=== PATIENT | female | born 1975 | race Caucasian/White ===

== ENCOUNTER 2017-05-09 10:42 | Outpatient (CLI) ==
--- NOTE | 2017-05-09 12:12 | DI ---
EXAM: Radiographs, cervical spine HISTORY: Neck pain. COMPARISON: None available. TECHNIQUE: Six views. FINDINGS: Curvature and alignment are normal. The vertebral body heights are maintained. There is mild loss of disc height at C5-6 with moderate endplate osteophyte formation. Mild uncovertebral hy pertrophy seen at C5-6 which may cause neural foraminal narrowing. No fracture or subluxation ident ified. Prevertebral soft tissues are unremarkable. IMPRESSION: Mild to moderate degenerative changes at C5-6.
--- NOTE | 2017-05-09 12:17 | DI ---
EXAM: Thoracic spine three view HISTORY: Pain COMPARISON: None FINDINGS: The vertebral bodies are normal in height. Alignment is normal. Intervertebral disk space s are maintained. No fracture. Small multilevel marginal osteophyte formation. IMPERSSION: 1. No fracture or subluxation. 2. Very mild degenerative change.
== END 2017-05-09 10:43 | disposition home or self-care (01) ==
LOC: RAD 10:42
PROVIDERS: ATTEND Family Medicine
DX: M54.2 Cervicalgia (principal)

== ENCOUNTER 2021-05-11 12:47 | Observation (INO) ==
[2021-05-11] MEDS ORDERED: SODIUM CHLORIDE 1,000 ML IV STA ×2 (13:05→15:36)
--- NOTE | 2021-05-11 13:12 | ED.PDOC ---
General ED Provider: Dr. KATHERYN ALCOCER Chief Complaint: Syncope Stated Complaint: Recently diagnosed with COVID. Developed Pain Rt Groin thigh Was referred to Hospital by PCP for Venous Doppler US Rt Thigh to evaluate possible Blood clot. In Radiology department developed darron syncope Time Seen by Provider: 05/11/21 13:25 Mode of Arrival: Wheelchair Information Source: Patient Exam Limitations: No limitations Primary Care Provider: KATHERYN FLANAGAN Nursing and Triage Documentation Reviewed and Agree: Yes Does patient meet sepsis criteria?: No System Inflammatory Response Syndrome: Acutely Altered Mental Status Sepsis Protocol: For patient's 13 years and over: Temp is 96.8 and below OR 101 and greater Pulse >90 BPM Resp >20/minute Acutely Altered Mental Status Are patient's symptoms suggestive of a new infection, such as: -Pneumonia -Skin, Soft Tissue -Endocarditis -UTI -Bone, Joint Infection -Implantable Device -Acute Abdominal Infection -Wound Infection -Meningitis -Blood Stream Catheter Infection -Unknown Neurological Complaint Exam Syncope/Near Syncope Complaint/Exam Onset/Duration: Few minutes Symptoms Are: Resolved Episodes Lasting: Minutes Number of Episodes: 1 Frequency of Episodes: once Episodes Witnessed: Yes Loss of Consciousness: Yes Associated Head Trauma: No Activity at Onset: At rest Aggravating: Position change Alleviating: Reports Spontaneous resolution Associated Signs and Symptoms: Reports Diaphoresis, Lightheadedness, Dizziness and Weakness Cardiac Risk Factors: Reports None GI Bleed Risk Factors: Reports None Dysrhythmia Risk Factors: Reports None Related Surgical History: Reports None JVD Present: No Carotid Bruit Present: No Nystagmus Present: No Gag Reflex Present: Yes Meningeal Signs Positive: No Focal Weakness: Present None Focal Sensory Loss: Present None Gait: Unable [id number]: Normal Findings Babinski Sign: Negative Right and Negative Left Heel to Toe Normal: Yes Ana-Hallpike Test Positive: No Differential Diagnoses: Hypovolemia, Pulmonary Embolism, Seizure and Vasovagal Episode Quality Indicators for Cardiac Chest Pain: EKG in 10min. Review of Systems Review Of Systems Constitutional: Reports Malaise, Weakness, Sweats and Loss of appetite Eyes: Reports No symptoms Ears, Nose, Mouth, Throat: Reports No symptoms Respiratory: Reports Cough and Orthopnea Cardiac: Reports No symptoms GI: Reports No symptoms : Reports Burning and Dysuria Musculoskeletal: Reports No symptoms Skin: Reports No symptoms Neurological: Reports No symptoms Endocrine: Reports No symptoms Hematologic/Lymphatic: Reports No symptoms All Other Systems: Reviewed and Negative Physical Exam Physical Exam Appearance: Reports Ill-appearing Ill-appearing: Moderate Pain Distress: Mild Eyes: Reports JOAN, EOMI, Conjunctiva clear and Conjunctiva inflammed ENT: Reports Ears normal, Nose normal and Oropharynx normal Neck: Supple Respiratory: Reports Airway patent, Breath sounds clear and Breath sounds diminished Cardiovascular: Reports RRR and Pulses normal GI/: Reports Soft, Nontender, No masses, Bowel sounds normal and No Organomegaly Musculoskeletal: Reports Normal strength, ROM intact, No edema and No calf tenderness Skin: Reports Warm, Dry and Normal color Neurological: Reports Sensation intact, Motor intact, Reflexes intact, Cranial nerves intact, Alert and Oriented Psychiatric: Reports Affect appropriate and Mood appropriate Interpretation Radiology Interpretation Radiology Interpretation By: Radiologist Exam Interpreted: CT Scan (PE protocol negative; bilateral pneumonia. Dopler s can neg) EKG Interpretation Time of EKG #1: 13:06 Rate: Normal Rhythm: Sinus Ectopy: None ST Segment: Normal Interpretation: NSR Critical Care Note Critical Care Note Total Critical Care Time (mins): 60 Course Course Hematology/Chemistry: 05/11/21 12:52 05/11/21 12:52 Orders, Labs, Meds: Lab Review 05/11/21 05/11/21 05/11/21 12:52 12:52 12:52 WBC 4.41 L RBC 4.47 Hgb 13.3 Hct 39.2 MCV 87.7 MCH 29.8 MCHC 33.9 RDW Coeff of Lali 13.9 Plt Count 181 Immature Gran % (Auto) 0.2 Neut % (Auto) 73.2 Lymph % (Auto) 18.6 Stafford % (Auto) 7.5 Eos % (Auto) 0.5 Baso % (Auto) 0.0 Neut # (Auto) 3.2 Lymph # (Auto) 0.8 Stafford # (Auto) 0.3 L Eos # (Auto) 0.0 Baso # (Auto) 0.0 Immature Gran # (Auto) 0.0 ESR 14 Sodium 137.1 Potassium 3.80 Chloride 104.6 Carbon Dioxide 23.3 Anion Gap 13.00 BUN 8.9 Creatinine 0.61 Estimated GFR (MDRD) 106.00 BUN/Creatinine Ratio 14.59 Glucose 127.2 H Lactic Acid Calcium 8.53 Magnesium 1.97 Total Bilirubin 0.44 AST 34.5 ALT 23.0 Alkaline Phosphatase 86.8 Total Creatine Kinase 29.1 L Total Protein 7.47 Albumin 4.29 Globulin 3.18 Albumin/Globulin Ratio 1.34 Procalcitonin D-Dimer Influ A Molecular Assay Influ B Molecular Assay 05/11/21 05/11/21 05/11/21 12:52 12:52 13:25 WBC RBC Hgb Hct MCV MCH MCHC RDW Coeff of Lali Plt Count Immature Gran % (Auto) Neut % (Auto) Lymph % (Auto) Stafford % (Auto) Eos % (Auto) Baso % (Auto) Neut # (Auto) Lymph # (Auto) Stafford # (Auto) Eos # (Auto) Baso # (Auto) Immature Gran # (Auto) ESR Sodium Potassium Chloride Carbon Dioxide Anion Gap BUN Creatinine Estimated GFR (MDRD) BUN/Creatinine Ratio Glucose Lactic Acid 1.00 Calcium Magnesium Total Bilirubin AST ALT Alkaline Phosphatase Total Creatine Kinase Total Protein Albumin Globulin Albumin/Globulin Ratio Procalcitonin < 0.05 D-Dimer 447.06 Influ A Molecular Assay Influ B Molecular Assay 05/11/21 13:50 WBC RBC Hgb Hct MCV MCH MCHC RDW Coeff of Lali Plt Count Immature Gran % (Auto) Neut % (Auto) Lymph % (Auto) Stafford % (Auto) Eos % (Auto) Baso % (Auto) Neut # (Auto) Lymph # (Auto) Stafford # (Auto) Eos # (Auto) Baso # (Auto) Immature Gran # (Auto) ESR Sodium Potassium Chloride Carbon Dioxide Anion Gap BUN Creatinine Estimated GFR (MDRD) BUN/Creatinine Ratio Glucose Lactic Acid Calcium Magnesium Total Bilirubin AST ALT Alkaline Phosphatase Total Creatine Kinase Total Protein Albumin Globulin Albumin/Globulin Ratio Procalcitonin D-Dimer Influ A Molecular Assay Negative by naat Influ B Molecular Assay Negative by naat Orders Category Date Time Status ADMIT OBSERVATION [PLACE PATIENT OBSERVATION] .TO ADMISSION 05/11/21 18:01 Active SCU (MONITORED BED) ADMIT OBSERVATION [PLACE PATIENT OBSERVATION] 1-2XD ADMISSION 05/11/21 18:01 Active EKG-(ED ONLY) Stat CARDIO 05/11/21 13:05 Completed METERED DOSE INHALATION Routine CARDIO 05/11/21 18:06 Ordered OXYGEN Routine CARDIO 05/11/21 18:11 Ordered ACTIVITY .BR with BRP CARE 05/11/21 18:12 Active INTAKE & OUTPUT Q8HR CARE 05/11/21 18:11 Active NPO REMINDER: IMAGING ONCE CARE 05/11/21 15:32 Completed TELEMETRY MONITORING TELE CARE 05/11/21 18:01 Active VITAL SIGNS Q4HR CARE 05/11/21 13:09 Completed VITAL SIGNS Q4HR CARE 05/11/21 18:12 Active REGULAR DIET DIETARY 05/11/21 Dinner Ordered IV [ED IV/MEDIPORT/POWERPORT] .ONCE EMERGENCY 05/11/21 13:06 Active BLOOD CULTURE (ED ONLY) Stat LAB 05/11/21 13:06 Ordered CBC W/ AUTO DIFF DAILY@0600 LAB 05/12/21 06:00 Ordered CBC W/ AUTO DIFF DAILY@0600 LAB 05/13/21 06:00 Ordered CBC W/ AUTO DIFF Stat LAB 05/11/21 12:52 Completed CMP [COMPREHENSIVE METABOLIC PANEL] Stat LAB 05/11/21 12:52 Completed COMPREHENSIVE METABOLIC PANEL DAILY@0600 LAB 05/12/21 06:00 Ordered COMPREHENSIVE METABOLIC PANEL DAILY@0600 LAB 05/13/21 06:00 Ordered CPK [CREATINE KINASE] Stat LAB 05/11/21 12:52 Completed CREATINE KINASE Q8H LAB 05/12/21 00:15 Ordered CREATINE KINASE Q8H LAB 05/12/21 08:15 Ordered D-DIMER Stat LAB 05/11/21 12:52 Completed ESR Stat LAB 05/11/21 12:52 Completed FLU A & B MOLECULAR [FLU A/B MOLECULAR] Stat LAB 05/11/21 13:50 Completed LACTIC ACID Stat LAB 05/11/21 13:25 Completed MAGNESIUM Stat LAB 05/11/21 12:52 Completed PROCALCITONIN Stat LAB 05/11/21 12:52 Completed TROPONIN I Q8H LAB 05/12/21 00:15 Ordered TROPONIN I Q8H LAB 05/12/21 08:15 Ordered UA [URINALYSIS C & S IF INDICATED] Stat LAB 05/11/21 13:09 Uncollected URINE DRUG SCREEN (RAPID FOR ED) [DRUG SCREEN, URINE, LAB 05/11/21 13:06 Uncollected RAPID] Stat 0.9 % Sodium Chloride [Saline Flush] MEDS 05/11/21 13:05 Active 1 syr IVF PRN PRN Albuterol Inhaler(with Spacer) [Ventolin Hfa (Per Puff- MEDS 05/11/21 21:00 Active with Spacer)] 2 puff IH QID Azithromycin [Zithromax] MEDS 05/11/21 18:05 Discontinued 500 mg PO ONCE STA Cholecalciferol (Vitamin D3) [Vitamin D] MEDS 05/11/21 18:18 Discontinued 1,000 unit PO ONCE ONE Enoxaparin Sodium [Lovenox] MEDS 05/11/21 18:30 Active 40 mg SUBCUT DAILY Ondansetron HCl/Pf [Zofran 4 mg/2 ml] MEDS 05/11/21 13:05 Active 4 mg IVP Q6H PRN Ondansetron HCl/Pf [Zofran 4 mg/2 ml] MEDS 05/11/21 18:11 Active 4 mg IVP Q6H PRN Sodium Chloride 0.9% [Sodium Chloride] 1,000 ml MEDS 05/11/21 13:05 Discontinued IV BOLUS Sodium Chloride 0.9% [Sodium Chloride] 1,000 ml MEDS 05/11/21 15:36 Discontinued IV BOLUS Zinc Sulfate [Zinc-220] MEDS 05/11/21 18:09 Discontinued 220 mg PO ONCE ONE RESUSCITATION STATUS Routine OTHERS 05/11/21 18:11 Ordered CHEST, 1V AP ONLY Stat RADS 05/11/21 13:[address] CHEST PE PROTOCOL Stat RADS 05/11/21 15:32 Completed U/S VENOUS SCAN RT LEG Stat RADS 05/11/21 15:30 Completed Medications Generic Name Dose Route Start Last Admin Trade Name Freq PRN Reason Stop Dose Admin Albuterol Sulfate 2 puff 05/11/21 21:00 Albuterol Sulfate (Ventolin Hfa) 18 Gm 1 Puff With Spacer IH QID ERI Enoxaparin Sodium 40 mg 05/11/21 18:30 Enoxaparin Sodium 40 Mg/0.4 Ml Syr SUBCUT DAILY ERI Ondansetron HCl 4 mg 05/11/21 13:05 05/11/21 16:52 Ondansetron Hcl/Pf 4 Mg/2 Ml Sdv IVP 4 mg Q6H PRN Administration nausea and vomiting Ondansetron HCl 4 mg 05/11/21 18:11 Ondansetron Hcl/Pf 4 Mg/2 Ml Sdv IVP Q6H PRN nausea and vomiting Sodium Chloride 1 syr 05/11/21 13:05 05/11/21 15:56 0.9% Sodium Chloride 10 Ml Disp.Syrin IVF 1 syr PRN PRN Administration To flush IV Discontinued Medications Generic Name Dose Route Start Last Admin Trade Name Chun PRN Reason Stop Dose Admin Azithromycin 500 mg 05/11/21 18:05 05/11/21 18:45 Azithromycin 250 Mg Tablet PO 05/11/21 18:06 500 mg ONCE STA Administration Cholecalciferol 1,000 unit 05/11/21 18:18 Cholecalciferol (Vitamin D3) 1,000 Unit (25 Mcg) Tablet PO 05/11/21 18:19 ONCE ONE Sodium Chloride 1,000 mls @ 1,000 mls/hr 05/11/21 13:05 05/11/21 14:15 Sodium Chloride IV 05/11/21 14:04 1,000 mls/hr BOLUS STA Administration Sodium Chloride 1,000 mls @ 500 mls/hr 05/11/21 15:36 05/11/21 15:56 Sodium Chloride IV 05/11/21 17:35 500 mls/hr BOLUS STA Administration Zinc Sulfate 220 mg 05/11/21 18:09 Zinc Sulfate 220 Mg Capsule PO 05/11/21 18:10 ONCE ONE Vital Signs: Temp Pulse Resp BP Pulse Ox 05/11/21 13:19 96.1 F L 74 20 89/66 L 96 Discharge Plan Discharge Patient Disposition: PLACED OBSERVATION Discharge Problem: Pneumonia due to 2019 novel coronavirus, Syncope, vasovagal ED Provider: KATHERYN ALCOCER Condition: Fair Physician Progress Note: Discussed case with Dr Flanagan-Would like to admit for observation, IV fluids, antibiotics []
[2021-05-11 13:16] LABS: EOSINOPHILS % (AUTO) 0.5 % (0.0-7.0); HEMATOCRIT 39.2 % (37.0-47.0); HEMOGLOBIN 13.3 g/dl (12.0-16.0); IMMATURE GRANULOCYTE % (AUTO) 0.2 % (0.0-5.0); LYMPHOCYTES # (AUTO) 0.8 K/uL (0.60-3.4); LYMPHOCYTES % (AUTO) 18.6 (10.0-50.0); MEAN CORPUSCULAR HEMOGLOBIN 29.8 pg (27.0-31.0); MEAN CORPUSCULAR HGB CONC 33.9 (31.8-35.4); MEAN CORPUSCULAR VOLUME 87.7 fl (81.0-99.0); MONOCYTES # (AUTO) 0.3 K/uL (0.4-2.0); MONOCYTES % (AUTO) 7.5 (0-10); NEUTROPHILS # (AUTO) 3.2 K/ul (2.0-6.9); NEUTROPHILS % (AUTO) 73.2 % (42.2-75.2); PLATELET COUNT 181 10^3/uL (140-440); RDW COEFFICIENT OF VARIATION 13.9 % (11.6-14.8); RED BLOOD COUNT 4.47 10^6/ul (4.20-5.40); WHITE BLOOD COUNT 4.41 K/ul (4.6-10.2)
[2021-05-11 13:21] LABS: ALBUMIN 4.29 g/dL (3.5-5.0); ALKALINE PHOSPHATASE 86.8 U/L (38-126); ASPARTATE AMINO TRANSFERASE 34.5 U/L (14-36); BILIRUBIN,TOTAL 0.44 mg/dL (0.2-1.3); BLOOD UREA NITROGEN 8.9 mg/dL (7-17); CALCIUM 8.53 mg/dL (8.4-10.2); CARBON DIOXIDE 23.3 mmol/L (22-30.0); CHLORIDE 104.6 mmol/L (98-107); CREATINE KINASE 29.1 U/L (30-135); CREATININE 0.61 mg/dL (0.60-1.30); GLUCOSE 127.2 mg/dL (74-106); POTASSIUM 3.8 mmol/L (3.5-5.1); SODIUM 137.1 mmol/L (134.5-145); TOTAL PROTEIN 7.47 g/dL (6.3-8.2)
[2021-05-11 13:50] LABS: ERYTHROCYTE SEDIMENTATION RATE 14 mm/hr (0-20)
--- NOTE | 2021-05-11 13:54 | DI ---
EXAM: Chest one view, frontal view only. HISTORY: COVID-19. COMPARISON: None. FINDINGS: The heart size is normal. There is no pulmonary vascular congestion. The lungs are clear . No pleural effusion or pneumothorax is seen. No acute osseous abnormality is identified. IMPRESSION: No acute cardiopulmonary process.
[2021-05-11 14:21] LABS: MOLECULAR FLU A NEGATIVE BY NAAT (NEGATIVE); MOLECULAR FLU B NEGATIVE BY NAAT (NEGATIVE)
--- NOTE | 2021-05-11 16:13 | US ---
EXAM: Ultrasound venous Doppler right lower extermity HISTORY: Pain, proximal thigh, positive COVID-19 COMPARISON: None TECHNIQUE: Venous duplex ultrasound of the right lower extremity was performed using color, [id number], and Doppler flow imaging. FINDINGS: There is normal color flow and compression of the right common femoral, greater saphenous, profunda femoral, femoral, popliteal, peroneal, posterior tibial, and anterior tibial veins without evidence of intraluminal thrombus. IMPRESSION: No evidence of right lower extremity deep venous thrombosis.
[2021-05-11] MEDS: ZOFRAN 4 MG/2 ML IVP PRN (16:52)
--- NOTE | 2021-05-11 17:04 | CT ---
EXAM: CTA of the chest. History: Syncope, hypertension, short of breath Technique: Multiplanar CT images through the thorax were obtained following administration of IV con trast. MIP images and 3-D reconstructions were also acquired. Findings: Heart size is normal. Trace pericardial fluid. No enlarged intrathoracic lymph nodes. N o thoracic aortic aneurysm. No pulmonary arterial filling defects. Small bilateral pleural effusion s. Multifocal bilateral lung infiltrates. No pneumothorax. Within the visualized upper abdomen, status post cholecystectomy. The spleen measures 15 cm in lengt h. No acute osseous abnormalities. Impression: 1. No pulmonary embolism. 2. Bilateral pneumonia. 3. Small bilateral pleural effusions. 4. Trace pericardial fluid. 5. Mild splenomegaly All CT scans are performed using dose optimization techniques as appropriate to the performed exam an d include at least one of the following: Automated exposure control, adjustment of the mA and/or kV according t o size, and the use of iterative reconstruction technique.
[2021-05-11] MEDS ORDERED: ZITHROMAX PO STA (18:05)
[2021-05-11] MEDS ORDERED: ZINC-220 PO ONE (18:09)
[2021-05-11] MEDS ORDERED: ZOFRAN 4 MG/2 ML IVP PRN (18:11)
[2021-05-11] MEDS ORDERED: VITAMIN D PO ONE (18:18)
[2021-05-11] MEDS ORDERED: VENTOLIN HFA (PER PUFF-WITH SPACER) IH SCH (21:00)
[2021-05-11] MEDS: LOVENOX SUBCUT SCH (21:29)
[2021-05-11 22:19] VITALS: BMI 28.8
[2021-05-12] MEDS: ZOFRAN 4 MG/2 ML IVP PRN (00:17)
[2021-05-12 00:37] LABS: CREATINE KINASE 34.5 U/L (30-135)
[2021-05-12 00:52] LABS: TROPONIN I < 0.012 ng/ml (0.0000-0.120)
[2021-05-12 00:55] LABS: BILIRUBIN,URINE Negative (NEGATIVE); CLARITY,URINE Clear (CLEAR); COLOR,URINE Yellow (YELLOW); GLUCOSE, URINE (UA) Negative (NEGATIVE); KETONES,URINE 1+ (NEGATIVE); LEUKOCYTE ESTERASE ,URINE Negative (NEGATIVE); NITRITE,URINE Negative (NEGATIVE); PH,URINE 6.5 (5-9); PROTEIN,URINE Negative (NEGATIVE); URINE, BLOOD Negative (NEGATIVE)
[2021-05-12 01:12] LABS: AMPHETAMINE SCREEN,URINE NEGATIVE (NEGATIVE); BARBITURATE SCREEN,URINE NEGATIVE (NEGATIVE); BENZODIAZEPINES SCREEN,URINE NEGATIVE (NEGATIVE); CANNABINOID SCREEN,URINE NEGATIVE (NEGATIVE); COCAIN SCREEN,URINE NEGATIVE (NEGATIVE); METHADONE URINE SCREEN NEGATIVE (NEGATIVE); METHAMPHETAMINES SCREEN,URINE NEGATIVE (NEGATIVE); OPIATE SCREEN,URINE NEGATIVE (NEGATIVE); OXYCODONE URINE SCREEN NEGATIVE (NEGATIVE); PHENCYCLIDINE SCREEN,URINE NEGATIVE (NEGATIVE); PROPOXYPHENE URINE SCREEN NEGATIVE (NEGATIVE); TRICYCLIC ANTIDEPRESSANTS URIN NEGATIVE (NEGATIVE)
[2021-05-12] MEDS: TYLENOL PO PRN ×2 (03:18→12:07)
[2021-05-12] MEDS: VENTOLIN HFA (PER PUFF-WITH SPACER) IH SCH ×3 (04:30→13:45)
[2021-05-12 05:31] LABS: HEMATOCRIT 33.8 % (37.0-47.0); HEMOGLOBIN 11.1 g/dl (12.0-16.0); LYMPHOCYTES # (AUTO) 0.4 K/uL (0.60-3.4); LYMPHOCYTES % (AUTO) 17.4 (10.0-50.0); MEAN CORPUSCULAR HEMOGLOBIN 29.6 pg (27.0-31.0); MEAN CORPUSCULAR HGB CONC 32.8 (31.8-35.4); MEAN CORPUSCULAR VOLUME 90.1 fl (81.0-99.0); MONOCYTES # (AUTO) 0.1 K/uL (0.4-2.0); MONOCYTES % (AUTO) 5.9 (0-10); NEUTROPHILS # (AUTO) 1.8 K/ul (2.0-6.9); NEUTROPHILS % (AUTO) 76.7 % (42.2-75.2); RED BLOOD COUNT 3.75 10^6/ul (4.20-5.40); WHITE BLOOD COUNT 2.36 K/ul (4.6-10.2)
[2021-05-12 05:46] LABS: ALBUMIN 3.42 g/dL (3.5-5.0); ALKALINE PHOSPHATASE 74.2 U/L (38-126); ASPARTATE AMINO TRANSFERASE 36.1 U/L (14-36); BILIRUBIN,TOTAL 0.43 mg/dL (0.2-1.3); BLOOD UREA NITROGEN 7.3 mg/dL (7-17); CALCIUM 7.96 mg/dL (8.4-10.2); CARBON DIOXIDE 23.5 mmol/L (22-30.0); CHLORIDE 104.4 mmol/L (98-107); CREATININE 0.57 mg/dL (0.60-1.30); GLUCOSE 98.3 mg/dL (74-106); POTASSIUM 3.36 mmol/L (3.5-5.1); SODIUM 134.4 mmol/L (134.5-145); TOTAL PROTEIN 6.06 g/dL (6.3-8.2)
[2021-05-12 06:05] LABS: PLATELET COUNT 112 10^3/uL (140-440)
[2021-05-12] MEDS: LOVENOX SUBCUT SCH (08:43)
[2021-05-12] MEDS ORDERED: [UNRECOGNIZED DRUG - OTHER] IV ONE (11:30)
[2021-05-12] MEDS ORDERED: CASIRIVIMAB IV ONE (11:30)
[2021-05-12] MEDS ORDERED: SODIUM CHLORIDE IV ONE (11:30)
[2021-05-12] MEDS ORDERED: IMDEVIMAB IV ONE (11:30)
[2021-05-12 14:11] VITALS: BP 105/62; TEMP 99.6
[2021-05-12] MEDS ORDERED: ZINC SULFATE 220 MG PO SCH (15:15)
[2021-05-12] MEDS ORDERED: VITAMIN D PO SCH (15:30)
[2021-05-12] MEDS ORDERED: PEPCID PO SCH (15:30)
[2021-05-12] MEDS ORDERED: ZINC-220 PO SCH (15:30)
--- NOTE | 2021-07-04 09:39 | SSS ---
PRINCIPAL DIAGNOSIS: 1. SYNCOPE, PROBABLY SECONDARY TO HYPOVOLEMIA 2. COVID-19 PNEUMONIA DISCUSSION: This is a 46-year-old lady who was recently diagnosed with Covid virus. She called and developed pain in the right groin and thigh. We sent her to the hospital as an outpatient for venous Doppler of the right lower extremity however she developed syncope in the Emergency Department and was transferred to the Emergency Department and seen. She was evaluated by Dr. Yang and because of the syncope was admitted to my services for further evaluation and treatment. PAST MEDICAL HISTORY: MEDICATIONS: None ALLERGIES: NKDA PAST MEDICAL HISTORY: No other health problems PAST SURGICAL HISTORY: Cholecystectomy SOCIAL HISTORY: She is with two children. No history of alcohol or tobacco use noted. FAMILY HISTORY: Positive for breast cancer Diabetes Hypertension REVIEW OF SYSTEMS: Occasional cough. Denies any chest pain, shortness of breath. Denies abdominal pain, blood in the stool, urinary symptoms or seizures. PHYSICAL EXAMINATION: VITAL SIGNS: Temperature 99.6, pulse 78, respirations 18 and blood pressure 105/62. HEENT: Pupils are round. NECK: Supple. CHEST: Rhonchorous sounds. CARDIOVASCULAR: Regular rate and rhythm. ABDOMEN: Soft, nontender. EXTREMITIES: Distal extremities without cyanosis or edema. CLINICAL COURSE: The patient was admitted to my services for observation with telemetry. Her blood pressure initially was low but with IV fluids seemed to improve. Her appetite improved. Her p.o. intake improved. Her oximetry remained stable. She was given the Covid-19 antibody infusion which she tolerated well. Post procedure she was alert and oriented. At this point she was discharged. Her oximetry was good. She is going to followup with me next week in the office. YARI
== END 2021-05-12 15:50 | disposition home or self-care (01) ==
LOC: SCU 12:47 → ED 12:47 → SCU 21:40
PROVIDERS: ADMIT Family Medicine; ATTEND Family Medicine
DX: R53.83 Other fatigue; R55 Syncope and collapse; R41.82 Altered mental status, unspecified; R10.2 Pelvic and perineal pain; J12.82 Pneumonia due to coronavirus disease 2019; U07.1 COVID-19; M79.651 Pain in right thigh; R42 Dizziness and giddiness